=== PATIENT | male | born 1985 | race African-American/Black ===

== ENCOUNTER 2021-08-20 20:37 | Emergency (ER) | payer MEDICAID, MEDICARE ==
[~2021-08-20] VITALS: Ht 185.4 cm; Wt 90.6 kg
[2021-08-20 20:42] VITALS: BP 149/99
[2021-08-20] MEDS ORDERED: CYCL10TA7 MT (22:43)
[2021-08-20] MEDS ORDERED: MOBI7 MT (22:43)
== END 2021-08-20 23:02 | disposition home or self-care (01) ==
LOC: ER 20:37
DX: M25.511 Pain in right shoulder (principal); R03.0 Elevated blood-pressure reading, without diagnosis of hypertension; M25.551 Pain in right hip; M79.641 Pain in right hand; E11.9 Type 2 diabetes mellitus without complications
CPT/HCPCS: 99283